=== PATIENT | female | born 1960 | race Caucasian/White ===

== ENCOUNTER 2017-08-27 09:19 | Observation (INO) | payer OTHER ==
[2017-08-27] MEDS ORDERED: KETOROLAC TROMETHAMINE 30 MG/1 ML VIAL IVPUSH ONE (09:37)
[2017-08-27] MEDS ORDERED: ONDANSETRON 4 MG/2 ML VIAL IVPB ONE ×3 (09:38→15:49)
[2017-08-27] MEDS ORDERED: SODIUM CHLORIDE 1,000 ML IV STA ×2 (09:39→12:24)
[2017-08-27] MEDS ORDERED: ONDANSETRON 4 MG/2 ML VIAL ONE ×4 (10:03→16:08)
[2017-08-27] MEDS ORDERED: KETOROLAC TROMETHAMINE 30 MG/1 ML VIAL ONE (10:03)
[2017-08-27] MEDS ORDERED: ACETAMINOPHEN INJECTION 100 ML IVPB ONE (10:07)
[2017-08-27] MEDS ORDERED: ACETAMINOPHEN 1000 MG/100 ML VIAL (NON FORMULARY) IVPB ONE (10:07)
[2017-08-27] MEDS ORDERED: LORazepam 2 MG/ML SDV VIAL ONE ×2 (10:08→16:09)
--- NOTE | 2017-08-27 10:08 | PDOC ---
History of Present Illness - General Chief Complaint: Pain, Acute Stated Complaint: POSSIBLE KIDNEY STONES Time Seen by Provider: 08/27/17 09:37 - History of Present Illness Initial Comments: 08/27/17 10:30 Chief complaint: Flank pain History of present illness: Patient states that she has had right flank pain, severe, but intermittent, for the last 2 days. It is worse today. Review of systems: Admits nausea, retching, dark urine, and dysuria. Denies fever/chills, URI symptoms, sore throat, cough, chest pain, shortness of breath , anterior abdominal pain, diarrhea, hematemesis, melena, bloody stool, vaginal bleeding or discharge, visual or focal neurologic symptoms. Remainder systems reviewed and found to be negative Past medical history: History of kidney stones, poor results from left knee replacement resulting in knee and back pain, numbness and tingling on the left foot. Multiple ALLERGIES to medications, including narcotics, but the ALLERGIC reaction described consistent more with side effect and ALLERGIC reaction. With morphine she experiences nausea and confusion, and with oxycodone nausea. Social history: No tobacco alcohol or nonprescription drugs. Ambulatory with a cane, cares for herself. Family history: Reviewed and noncontributory including early coronary artery disease, metabolic disease including diabetes, and cancer Physical exam: Alert, moderate distress due to colicky right flank pain. Afebrile, vital signs stable except for moderately elevated blood pressure, probably due to pain and anxiety. HEENT clear. No pallor or icterus Neck supple without bruit mass or nodes Chest clear to P&A CV regular without murmur rub or gallop pulses full and symmetric no JVD or edema no bruits Abdomen nondistended. Bowel sounds normal. Mild sensitivity to deep palpation left mid abdomen and left flank. However, this may be due to anticipation and not real tenderness. Neurological intact Extremities: Synovial thickening of the left knee joint, no point tenderness erythema or warmth. Decreased sensation and strength in the left foot, which the patient states is unchanged and due to her knee surgery. Impression: Patient's intractable pain is most likely due to to a recurrent kidney stone, with renal colic. Other possibilities include cholecystitis, appendicitis, obstruction with perforation, other intra-abdominal process Plan: Analgesia, labs and CT, further evaluation depending on results 08/27/17 10:48 Past History - Past Medical History Allergies/Adverse Reactions: Allergies Allergy/AdvReac Type Severity Reaction Status Date / Time atorvastatin AdvReac Severe Myalgia Verified 08/27/17 09:50 gabapentin AdvReac Severe Headache Verified 08/27/17 09:51 oxycodone AdvReac Severe Vomiting Verified 08/27/17 09:51 cyclobenzaprine HCl AdvReac Intermediate pALPITATION Verified 08/27/17 09:51 [From Flexeril] S morphine AdvReac Intermediate Anxiety, Verified 08/27/17 09:51 agitation simvastatin AdvReac Myalgia Verified 08/27/17 09:52 Home Medications: Ambulatory Orders Cholecalciferol (Vitamin D3) [Vitamin D3] 2,000 unit PO DAILY 03/20/16 Cyanocobalamin (Vitamin B-12) [Vitamin B12] 2,500 mcg PO DAILY 03/20/16 Anemia: No Asthma: No Cancer: No Cardiac Disorders: Yes (CARDIAC ABLATION FOLLOWING SVT 1999) CVA: No COPD: No CHF: No Dementia: No Diabetes: No GI Disorders: No Disorders: No HTN: No Hypercholesterolemia: Yes Kidney Stones: Yes Liver Disease: No Seizures: No Thyroid Disease: No - Surgical History Abdominal Surgery: No Appendectomy: No Cardiac Surgery: Yes (ABLATION FOR SVT 1999) Cholecystectomy: No Lung Surgery: No Neurologic Surgery: No Orthopedic Surgery: Yes (LEFT KNEE ARTHROSCOPY 2011/LEFT TKR 2012) - Immunization History Td Vaccination: Yes Immunization Up to Date: Yes - Suicide/Smoking/Psychosocial Hx Smoking Status: No Smoking History: Never smoked Have you smoked in the past 12 months: No Number of Cigarettes Smoked Daily: 0 Hx Alcohol Use: Yes (RARE) Drug/Substance Use Hx: No Substance Use Type: Alcohol Hx Substance Use Treatment: No ED Treatment Course - LABORATORY CBC & Chemistry Diagram: 08/27/17 10:05 08/27/17 10:05 Medical Decision Making - Medical Decision Making 08/27/17 10:38 Despite the administration of multiple medications to which the patient has not experienced ALLERGY, her pain is still severe and she is writhing in discomfort. Since her "ALLERGIC reactions "to narcotics do not appear to be due to true ALLERGIES but to medication side effects, a small dose of Dilaudid was administered, which the patient tolerated well. 08/27/17 12:25 CT reveals a 3 mm stone at the right UVJ, with hydronephrosis and hydroureter. The patient still experiencing colicky pain, but more controlled now with narcotics. Continue observation and fluids. Laboratory studies without significant abnormalities, specifically, no elevated white count and normal renal function. Urinalysis without evidence of UTI. 08/27/17 12:26 08/27/17 17:59 Spoke to hospitalist, Dr. Palomo, for admission. Consult her stated from Dr. Barclay who will see patient in consultation. Patient continues to have intermittent pain, nausea, and vomiting, despite continuous medication administration. *DC/Admit/Observation/Transfer Diagnosis at time of Disposition: Renal colic on right side - Discharge Dispostion Admit: Yes - Referrals - Patient Instructions - Post Discharge Activity
[2017-08-27 10:18] LABS: BASO % 0.5 % (0-2.0); EOS % 0.4 % (0-4.5); HEMATOCRIT 41.9 % (32.4-45.2); HEMOGLOBIN 14.1 GM/dl (10.7-15.3); LYMPH % 35.7 % (8-40); MCH 30.7 pg (25.7-33.7); MCHC 33.6 g/dl (32.0-36.0); MEAN CELL VOLUME 91.4 fl (80-96); MONO % 10.8 % (3.8-10.2); NEUT % 52.6 % (42.8-82.8); PLATELET COUNT 409 K/MM3 (134-434); RBC 4.59 M/mm3 (3.60-5.2); RDW 13.1 % (11.6-15.6)
[2017-08-27] MEDS ORDERED: HYDROmorphone HCL CARPU-JECT 1 MG/1 ML DISP.SYRIN IVPUSH ONE ×3 (10:19→13:07)
[2017-08-27] MEDS ORDERED: HYDROmorphone HCL CARPU-JECT 1 MG/1 ML DISP.SYRIN ONE ×3 (10:22→13:11)
[2017-08-27 10:31] LABS: PH,URINE 5.5 (4.5-8); URINE APPEARANCE Clear; URINE BILIRUBIN 1+ (NEGATIVE); URINE GLUCOSE (UA) Negative (NEGATIVE); URINE KETONE Negative (NEGATIVE); URINE LEUK ESTERASE Negative (NEGATIVE); URINE NITRITE Negative (NEGATIVE); URINE UROBILINOGEN 0.2 (0.2-1.0)
[2017-08-27 10:43] LABS: URINE BLOOD 1+ (NEGATIVE)
[2017-08-27 10:43] LABS: ALBUMIN 4.3 g/dl (3.5-5.0); ALK PHOS 67 U/L (32-92); ANION GAP 8 (8-16); BILIRUBIN,TOTAL 0.7 mg/dl (0.2-1.0); BLOOD UREA NITROGEN 12 mg/dl (7-18); CALCIUM 9.1 mg/dl (8.4-10.2); CHLORIDE 106 mmol/L (98-107); CO2 21 mmol/L (22-28); GLUCOSE,RANDOM 107 mg/dl (74-106); POTASSIUM 3.7 mmol/L (3.5-5.1); SGOT/AST 27 U/L (10-42); SGPT/ALT 16 U/L (10-40); SODIUM 135 mmol/L (136-145); TOT PROT 7.2 g/dl (6.4-8.3)
[2017-08-27 10:44] LABS: URINE COLOR YELLOW; URINE PROTEIN 1+ (NEGATIVE)
[2017-08-27 11:05] LABS: CREATININE < 0.8 mg/dl (0.6-1.3)
[2017-08-27 11:55] LABS: EPI CELLS FEW /HPF; URINE BACTERIA FEW /hpf (NEGATIVE); URINE RBC NONE SEEN /hpf (0-3); URINE WBC 0-2 (0-5)
[2017-08-27 11:56] LABS: YEAST FEW
[2017-08-27] MEDS ORDERED: ACETAMINOPHEN 1000 MG/100 ML VIAL (NON FORMULARY) IVPB PRN (15:15)
[2017-08-27] MEDS ORDERED: SODIUM CHLORIDE 1,000 ML IV SCH (15:15)
--- NOTE | 2017-08-27 15:23 | HOSP ---
Subjective - Review of Symptoms Events since last encounter: Was called By ED. Attending Dr. Babcock that patient needs to come in for observation for Renal colic with 3mm stone and was suggested to karly Segura's office for further evaluation. Physically, I am not available At [facility], placed basic orders. 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 Physical Examination Vital Signs: Vital Signs Temperature 98.5 F 08/27/17 09:21 Pulse Rate 56 L 08/27/17 13:15 Respiratory Rate 20 08/27/17 13:15 Blood Pressure 124/78 08/27/17 14:30 O2 Sat by Pulse Oximetry (%) 99 08/27/17 11:09 Labs: CBC, BMP 08/27/17 10:05 08/27/17 10:05
[2017-08-27 17:32] VITALS: BMI 26.4
[2017-08-27] MEDS ORDERED: TAMSULOSIN HCL 0.4 MG CAP.ER.24H (FP) PO ONE (23:00)
--- NOTE | 2017-08-27 23:04 | HP ---
CHIEF COMPLAINT: flank pain PCP: [facility] HISTORY OF PRESENT ILLNESS: This is a 57 year old female with a past medical history significant for renal colic presented with R flank pain x 2 days with nausea and vomiting. Upon exam pt reports no further flank pain. C/o headache, concerned for impending migraine. Ice pack helping. given ofirmev IV. ER course was notable for: (1) CT with 3mm stone R UVJ, mild R hydrouteronephrosis (2) WBC 6.0 (3) u/a no RBC/no WBC Recent Travel: pt denies PAST MEDICAL HISTORY: renal stone, SVT HLD, chronic L knee and back pain, fibroids PAST SURGICAL HISTORY: hysterectomy 2006 L knee arthroscopy 2011, L TKR 2013 Ablation for SVT 2000 BCC removal 2017 Social History: Smoking: pt denies Alcohol: occ glass of wine Drugs: pt denies Family History: mother alive with Dementia, HTN, gallstones, kidney stones, OA father age 55, heart disease brother alive, s/p valve replacement and cardiac disease sister alive, fibroids Allergies atorvastatin Adverse Reaction (Severe, Verified 08/27/17 09:50) Myalgia gabapentin Adverse Reaction (Severe, Verified 08/27/17 09:51) Headache oxycodone Adverse Reaction (Severe, Verified 08/27/17 09:51) Vomiting cyclobenzaprine HCl [From Flexeril] Adverse Reaction (Intermediate, Verified 09:51) pALPITATIONS morphine Adverse Reaction (Intermediate, Verified 08/27/17 09:51) Anxiety, agitation simvastatin Adverse Reaction (Verified 08/27/17 09:52) Myalgia HOME MEDICATIONS: 3 Medication Instructions Recorded Cholecalciferol (Vitamin D3) 2,000 unit PO DAILY 03/20/16 [Vitamin D3] Cyanocobalamin (Vitamin B-12) 2,500 mcg PO DAILY 03/20/16 [Vitamin B12] REVIEW OF SYSTEMS CONSTITUTIONAL: Absent: fever, chills, diaphoresis, generalized weakness, malaise, loss of appetite, weight change HEENT: Absent: rhinorrhea, nasal congestion, throat pain, throat swelling, difficulty swallowing, mouth swelling, ear pain, eye pain, visual changes CARDIOVASCULAR: Absent: chest pain, syncope, palpitations, irregular heart rate, lightheadedness , peripheral edema RESPIRATORY: Absent: cough, shortness of breath, dyspnea with exertion, orthopnea, wheezing, stridor, hemoptysis GASTROINTESTINAL: Present: nausea, vomiting Absent: abdominal pain, abdominal distension, diarrhea, constipation, melena, hematochezia GENITOURINARY: Present: flank pain Absent: dysuria, frequency, urgency, hesitancy, hematuria, genital pain MUSCULOSKELETAL: Absent: myalgia, arthralgia, joint swelling, back pain, neck pain SKIN: Absent: rash, itching, pallor HEMATOLOGIC/IMMUNOLOGIC: Absent: easy bleeding, easy bruising, lymphadenopathy, frequent infections ENDOCRINE: Absent: unexplained weight gain, unexplained weight loss, heat intolerance, cold intolerance NEUROLOGIC: Absent: headache, focal weakness or paresthesias, dizziness, unsteady gait, seizure, mental status changes, bladder or bowel incontinence PSYCHIATRIC: Absent: anxiety, depression, suicidal or homicidal ideation, hallucinations. PHYSICAL EXAMINATION Vital Signs - 24 hr 3 08/27/17 08/27/17 08/27/17 09:21 10:23 10:28 Temperature 98.5 F Pulse Rate 94 H Pulse Rate [ 92 H 80 Right] Respiratory 20 24 20 Rate Blood Pressure 157/92 Blood Pressure 178/119 160/97 [Right Arm] O2 Sat by Pulse 100 98 100 Oximetry (%) 3 08/27/17 08/27/17 08/27/17 10:40 11:09 13:15 Temperature Pulse Rate Pulse Rate [ 75 62 56 L Right] Respiratory 20 20 20 Rate Blood Pressure Blood Pressure 145/92 136/83 141/83 [Right Arm] O2 Sat by Pulse 99 Oximetry (%) 08/27/17 08/27/17 08/27/17 08/27/17 16:10 17:22 20:00 22:04 Temperature 97.5 F L 93.7 F L 98.1 F 98.6 F Pulse Rate 69 76 79 Pulse Rate [ 72 Right] Respiratory 16 18 16 18 Rate Blood Pressure 138/90 125/68 112/66 Blood Pressure 143/81 [Right Arm] O2 Sat by Pulse 97 100 Oximetry (%) GENERAL: Awake, alert, and fully oriented, in no acute distress. HEAD: Normal with no signs of trauma. EYES: Pupils equal, round and reactive to light, extraocular movements intact, sclera anicteric, conjunctiva clear. No lid lag. EARS, NOSE, THROAT: Ears normal, nares patent, oropharynx clear without exudates. Moist mucous membranes. NECK: Normal range of motion, supple without lymphadenopathy, JVD, or masses. LUNGS: Breath sounds equal, clear to auscultation bilaterally. No wheezes, and no crackles. No accessory muscle use. HEART: Regular rate and rhythm, normal S1 and S2 without murmur, rub or gallop. ABDOMEN: Soft, nontender, not distended, normoactive bowel sounds, no guarding, no rebound, no masses. No hepatomegaly or splenomegaly. MUSCULOSKELETAL: Normal range of motion at all joints. No bony deformities or tenderness. +R CVA tenderness. UPPER EXTREMITIES: 2+ pulses, warm, well-perfused. No cyanosis. No clubbing. No peripheral edema. LOWER EXTREMITIES: 2+ pulses, warm, well-perfused. No calf tenderness. No peripheral edema. NEUROLOGICAL: Cranial nerves II-XII intact. Normal speech. Normal gait. PSYCHIATRIC: Cooperative. Good eye contact. Appropriate mood and affect. SKIN: Warm, dry, normal turgor, no rashes or lesions noted, normal capillary refill. Laboratory Results - last 24 hr 3 08/27/17 08/27/17 08/27/17 09:41 10:05 10:05 WBC 6.0 D RBC 4.59 Hgb 14.1 Hct 41.9 MCV 91.4 MCH 30.7 MCHC 33.6 RDW 13.1 Plt Count 409 MPV 7.0 L Neutrophils % 52.6 Lymphocytes % 35.7 Monocytes % 10.8 H Eosinophils % 0.4 Basophils % 0.5 Sodium 135 L Potassium 3.7 Chloride 106 Carbon Dioxide 21 L Anion Gap 8 BUN 12 Creatinine < 0.8 D Creat Clearance w eGFR > 60 Random Glucose 107 H Calcium 9.1 Total Bilirubin 0.7 D AST 27 D ALT 16 D Alkaline Phosphatase 67 Total Protein 7.2 Albumin 4.3 Urine Color Yellow Urine Appearance Clear Urine pH 5.5 Ur Specific [place] >= 1.030 H Urine Protein 1+ H Urine Glucose (UA) Negative Urine Ketones Negative Urine Blood 1+ H Urine Nitrite Negative Urine Bilirubin 1+ H Urine Urobilinogen 0.2 Ur Leukocyte Esterase Negative Urine RBC None seen Urine WBC 0-2 Ur Epithelial Cells Few Urine Bacteria Few Urine Yeast Few Radiology Reports CT abd/pel without contrast IMPRESSION: A 3 mm right ureterovesical junction calculus with mild right hydroureteronephrosis. Reported By: Holly Mak 08/27/17 1205 ASSESSMENT/PLAN: 57yF with PMH renal stones, HLD, SVT, migraines, OA presented to the ED with R flank pain, nausea, vomiting. R kidney stone - 3mm stone RUVJ - tamsulosin x 1 then daily - multiple intolerances to opioids, cont ofirmev, if pain not resolved, give toradol - urology consult HLD - cont home lipitor OA - takes vicodin at home, unavailable here, tx with tylenol migraines - home sumatriptan continued DVT PPX - deferred, anticipated lOS <48h FEN - NS @ 125ml/hr - bmp in am - NPO after MN Dispo: Pt currently requires further observation for management of her emergent condition. Visit type - Emergency Visit Emergency Visit: Yes ED Registration Date: 08/27/17 Care time: The patient presented to the Emergency Department on the above date and was hospitalized for further evaluation of their emergent condition. - New Patient This patient is new to me today: Yes Date on this admission: 08/27/17 - Critical Care Critical Care patient: No Hospitalist Screening - Colonoscopy Questionnaire Colonoscopy Questionnaire: Colonoscopy Questionnaire - Patient: 50 - 75 years old and never had a screening colonoscopy: No History of colon or rectal polyps, or CA: No History of IBD, Crohn's disease or UC: No History of abdominal radiation therapy as a child: No - Relative: 1 with colon or rectal CA, or polyps at age 60 or younger: No Colon or rectal CA diagnosed at age 45 or younger: No Multiple relatives with colon or rectal CA: No - Outcome: Screening Result: Negative Screen
[2017-08-27] MEDS ORDERED: ONDANSETRON 4 MG/2 ML VIAL IVPUSH PRN (23:27)
[2017-08-27] MEDS ORDERED: SUMAtriptan SUCCINATE 50 MG TABLET PO PRN (23:58)
[2017-08-28] MEDS ORDERED: TAMSULOSIN HCL 0.4 MG CAP.ER.24H (FP) PO SCH (08:30)
[2017-08-28 09:42] VITALS: BP 118/61; PULSE 76; TEMP 98.4
[2017-08-28] MEDS ORDERED: CHOLECALCIFEROL (VITAMIN D3) 1,000 UNIT TABLET (FP) PO SCH (10:00)
[2017-08-28] MEDS ORDERED: CYANOCOBALAMIN 1,000 MCG TABLET (FP) PO SCH (10:00)
--- NOTE | 2017-08-28 10:25 | DS ---
Physical Exam: SUBJECTIVE: Patient seen and examined, patient is ambulatory at bedside, denies any flank pain, patient is requesting discharge home. OBJECTIVE: This is a 57 year old female with a past medical history significant for renal colic presented with R flank pain x 2 days with nausea and vomiting. Upon exam pt reports no further flank pain. C/o headache, concerned for impending migraine. Ice pack helping. given ofirmev IV. ER course was notable for: (1) CT with 3mm stone R UVJ, mild R hydrouteronephrosis (2) WBC 6.0 (3) u/a no RBC/no WBC Vital Signs Period Temp Pulse Resp BP Sys/Mckeon Pulse Ox Last 24 Hr 93.7 F-98.6 F 56-84 16-20 112-160/61-97 97-100 PHYSICAL EXAM GENERAL: The patient is awake, alert, and fully oriented, in no acute distress. HEAD: Normal with no signs of trauma. EYES: PERRL, extraocular movements intact, sclera anicteric, conjunctiva clear. ENT: Ears normal, nares patent, oropharynx clear without exudates, moist mucous membranes. NECK: Trachea midline, full range of motion, supple. LUNGS: Breath sounds equal, clear to auscultation bilaterally, no wheezes, no crackles, no accessory muscle use. HEART: Regular rate and rhythm, S1, S2 without murmur, rub or gallop. ABDOMEN: negative cva tenderness bilaterally, Soft, nontender, nondistended, normoactive bowel sounds, no guarding, no rebound, no hepatosplenomegaly, no masses. EXTREMITIES: 2+ pulses, warm, well-perfused, no edema. NEUROLOGICAL: Cranial nerves II through XII grossly intact. Normal speech, gait not observed. PSYCH: Normal mood, normal affect. SKIN: Warm, dry, normal turgor, no rashes or lesions noted. LABS Laboratory Results - last 24 hr 08/27/17 08/27/17 08/27/17 09:41 10:05 10:05 WBC 6.0 D RBC 4.59 Hgb 14.1 Hct 41.9 MCV 91.4 MCH 30.7 MCHC 33.6 RDW 13.1 Plt Count 409 MPV 7.0 L Neutrophils % 52.6 Lymphocytes % 35.7 Monocytes % 10.8 H Eosinophils % 0.4 Basophils % 0.5 Sodium 135 L Potassium 3.7 Chloride 106 Carbon Dioxide 21 L Anion Gap 8 BUN 12 Creatinine < 0.8 D Creat Clearance w eGFR > 60 Random Glucose 107 H Calcium 9.1 Total Bilirubin 0.7 D AST 27 D ALT 16 D Alkaline Phosphatase 67 Total Protein 7.2 Albumin 4.3 Urine Color Yellow Urine Appearance Clear Urine pH 5.5 Ur Specific [place] >= 1.030 H Urine Protein 1+ H Urine Glucose (UA) Negative Urine Ketones Negative Urine Blood 1+ H Urine Nitrite Negative Urine Bilirubin 1+ H Urine Urobilinogen 0.2 Ur Leukocyte Esterase Negative Urine RBC None seen Urine WBC 0-2 Ur Epithelial Cells Few Urine Bacteria Few Urine Yeast Few Radiology Reports CT abd/pel without contrast IMPRESSION: A 3 mm right ureterovesical junction calculus with mild right hydroureteronephrosis. Reported By: Holly Mak DO 08/27/17 1205 HOSPITAL COURSE: patient is a 7yF with PMH renal stones, HLD, SVT, migraines, OA presented to the ED with R flank pain, nausea, vomiting. Patient was admitted from the emergency department to observation for R kidney stone, 3mm stone RUVJ, patient was started on flomax. No leukocytosis noted, patient is pain free. Patient has a past medical history of hyperlipidemia, lipitor was continued throughout admission. PLAN - discharge home with flomax - strict follow up with urology Date of Admission:08/27/17 Date of Discharge: 08/28/17 Minutes to complete discharge: 45 Discharge Summary Reason For Visit: POSSIBLE KIDNEY STONES Current Active Problems Renal colic on right side (Acute) Condition: Improved - Instructions Diet, Activity, Other Instructions: rest, continue to strain all urine continue flomax in the AM continue all medications as prescribed please follow up with the urologist within 1 week if any new or persistent symptoms develop please return to the emergency department Referrals: Jose Barclay MD., [Staff Physician] - Theron Joseph MD [Staff Physician] - Adolfo Abdi MD [Staff Physician] - Disposition: HOME - Home Medications Comprehensive Discharge Medication List: Ambulatory Orders Atorvastatin Ca 10 mg PO HS 08/27/17 [id number] 50-325-40 1 tab PO As directed PRN 08/27/17 Hydrocodone-Acetamin 10-325 mg 1 tab PO PRN 08/27/17 Sumatriptan 100 mg PO PRN 08/27/17 Vit B12 1,000 iu PO DAILY 08/27/17 This patient is new to me today: Yes Date on this admission: 08/28/17 Emergency Visit: Yes ED Registration Date: 08/27/17 Care time: The patient presented to the Emergency Department on the above date and was hospitalized for further evaluation of their emergent condition. Critical Care patient: No - Discharge Referral Referred to [facility] Yes Physician Referral: Adolfo Abdi MD (Int Med)
[2017-08-28] MEDS ORDERED: ATORVASTATIN CA 10 MG TABLET (FP) PO SCH (22:00)
== END 2017-08-28 11:00 | disposition home or self-care (01) ==
LOC: FER 09:19 → FM/S 15:55
PROVIDERS: ADMIT Internal Medicine; ATTEND Nurse Practitioner Family
PROC: 3E033NZ Introduction of Analgesics, Hypnotics, Sedatives into Peripheral Vein, Percutaneous Approach (ICD-10-PCS; principal; 2017-08-27)
PROC: 3E0333Z Introduction of Anti-inflammatory into Peripheral Vein, Percutaneous Approach (ICD-10-PCS; 2017-08-27)
PROC: 3E033GC Introduction of Other Therapeutic Substance into Peripheral Vein, Percutaneous Approach (ICD-10-PCS; 2017-08-27)
PROC: 3E0337Z Introduction of Electrolytic and Water Balance Substance into Peripheral Vein, Percutaneous Approach (ICD-10-PCS; 2017-08-27)
DX: N13.2 Hydronephrosis with renal and ureteral calculous obstruction (principal); E78.5 Hyperlipidemia, unspecified; G43.909 Migraine, unspecified, not intractable, without status migrainosus; Z87.442 Personal history of urinary calculi; Z88.8 Allergy status to other drugs, medicaments and biological substances
CPT/HCPCS: 36415; 74176; 80053; 81003; 81015; 85025; 87086; 99285-25; G0378; J0131; J7030

== ENCOUNTER 2017-09-24 06:04 | Day surgery (SDC) | payer OTHER ==
[2017-09-18 09:01] VITALS: BMI 25.9
[2017-09-24] MEDS ORDERED: PROPOFOL 20 ML ONE ×3 (07:26)
[2017-09-24] MEDS ORDERED: SUCCINYLCHOLINE CHLORIDE 200 MG/10 ML VIAL ONE (07:27)
[2017-09-24] MEDS ORDERED: MIDAZOLAM HCL 2 MG/2 ML SINGLE DOSE VIAL ONE (07:27)
[2017-09-24] MEDS ORDERED: LIDOCAINE HCL 2% (50ML VIAL) INF ONE (07:55)
[2017-09-24] MEDS ORDERED: ONDANSETRON 4 MG/2 ML VIAL IVPUSH PRN (08:16)
[2017-09-24] MEDS ORDERED: PROMETHAZINE HCL 25 MG/1 ML VIAL IVPUSH PRN (08:16)
[2017-09-24 08:48] VITALS: TEMP 98.1
[2017-09-24 09:26] VITALS: BP 128/82; PULSE 62
--- NOTE | 2017-09-24 10:10 | OP ---
DATE OF OPERATION: 09/24/2017 PREOPERATIVE DIAGNOSIS: Right long trigger finger. POSTOPERATIVE DIAGNOSIS: Right long trigger finger. OPERATIVE PROCEDURE: Right long trigger finger release. ANESTHESIA: Local with sedation. COMPLICATIONS: None. ESTIMATED BLOOD LOSS: Minimal. INDICATIONS FOR PROCEDURE: The patient is a 57-year-old female with the above findings indicated for operative treatment. Risks, benefits and alternatives were discussed with the patient at length. Proper informed consent was obtained. PROCEDURE: After proper identification of the patient and correct operative site, the patient was brought to the operating room and placed supine on the operating room table. All prominences were well padded. Sedation was given by the anesthesiologist. Local anesthesia was given with 2% lidocaine. The right upper extremity was prepped and draped in the usual sterile fashion. A well-padded tourniquet was placed with a sterile prep. Esmarch bandage used to exsanguinate the right upper extremity. Tourniquet was inflated to 250 mmHg. A longitudinal incision was made over the A1 lucho of the long finger. Incision was taken sharply through skin with blunt and sharp dissection through subcutaneous tissues. The A1 lucho was divided longitudinally. At this point, the patient was asked to flex and extend the finger and no further triggering was noted. The wound was irrigated with saline and repaired with a 5-0 nylon suture. Sterile dressings were applied. The patient was reversed from anesthesia and brought to the recovery room in stable condition. She tolerated the procedure well. JOSIAH EUGENE M.D. [id number]
== END 2017-09-24 09:28 | disposition home or self-care (01) ==
LOC: FASU 06:04
PROVIDERS: ATTEND Orthopaedic Surgery Hand Surgery
PROC: 0LN70ZZ Release Right Hand Tendon, Open Approach (ICD-10-PCS; principal; 2017-09-24 07:43)
DX: M65.331 Trigger finger, right middle finger (principal)

== ENCOUNTER 2018-07-01 08:34 | Day surgery (SDC) | payer OTHER ==
[2018-06-19 09:15] VITALS: BMI 25.7
[2018-07-01] MEDS ORDERED: MIDAZOLAM HCL 2 MG/2 ML SINGLE DOSE VIAL ONE (09:34)
[2018-07-01] MEDS ORDERED: PROPOFOL 20 ML ONE ×2 (09:37)
[2018-07-01] MEDS ORDERED: LIDOCAINE HCL 2% (50ML VIAL) INF ONE (09:47)
[2018-07-01] MEDS ORDERED: ONDANSETRON 4 MG/2 ML VIAL IVPUSH PRN (10:08)
[2018-07-01] MEDS ORDERED: PROMETHAZINE HCL 25 MG/1 ML VIAL IVPB PRN (10:08)
[2018-07-01] MEDS ORDERED: ACETAMINOPHEN 325 MG TABLET (FP) PO PRN (10:08)
[2018-07-01 10:30] VITALS: TEMP 97.7
[2018-07-01 10:49] VITALS: BP 118/77; PULSE 66
--- NOTE | 2018-07-01 12:20 | OP ---
DATE OF OPERATION: 07/01/2018 PREOPERATIVE DIAGNOSIS: Left carpal tunnel syndrome. POSTOPERATIVE DIAGNOSIS: Left carpal tunnel syndrome. OPERATIVE PROCEDURE: Left carpal tunnel release. ANESTHESIA: Local with sedation. COMPLICATIONS: None. ESTIMATED BLOOD LOSS: Minimal. INDICATION FOR PROCEDURE: The patient is a 58-year-old female with the above finding indicated for operative treatment. Risks, benefits, and alternatives were discussed with the patient at length and proper informed consent was obtained. DESCRIPTION OF PROCEDURE: After preoperative identification of patient and correct operative site, patient was brought to the operating room and placed supine on the operating table with all prominences well padded. Sedation and local anesthesia were given. Left upper extremity was prepped and draped in the usual sterile fashion. A well-padded tourniquet was placed over the sterile prep. Esmarch bandage used to exsanguinate left upper extremity. Tourniquet was placed up at 250 mmHg. Longitudinal incision was made over the carpal canal. Incision was taken sharply through skin with blunt and sharp dissection through subcutaneous tissues. Palmar fascia was divided longitudinally. Transverse carpal ligament was divided longitudinally, along with the distal 4 cm of the antebrachial fascia under direct visualization with loop magnification. This provided complete release of the median nerve at the wrist. Wound was irrigated with saline and repaired with a 5-0 nylon suture. Sterile dressings were applied. Patient was brought to the recovery room in stable condition. She tolerated the procedure well. JOSIAH EUGENE M.D. [id number]
== END 2018-07-01 10:53 | disposition home or self-care (01) ==
LOC: FASU 08:34
PROVIDERS: ATTEND Orthopaedic Surgery Hand Surgery
PROC: 01N50ZZ Release Median Nerve, Open Approach (ICD-10-PCS; principal; 2018-07-01 09:54)
DX: G56.02 Carpal tunnel syndrome, left upper limb (principal)

== ENCOUNTER 2018-11-18 06:52 | Day surgery (SDC) | payer OTHER | END 2018-11-18 12:00 | disposition home or self-care (01) | LOC: FASU 06:52 ==

== ENCOUNTER 2019-06-15 09:06 | Emergency (ER) | payer OTHER ==
[2019-06-15 09:20] VITALS: BP 140/93; PULSE 74; TEMP 98.3; BMI 26.6
--- NOTE | 2019-06-15 09:29 | PDOC ---
History of Present Illness - General Chief Complaint: Back Pain Stated Complaint: KIDNEY STONE Time Seen by Provider: 06/15/19 09:28 - History of Present Illness Initial Comments: 06/15/19 11:06 Chief complaint: Back pain HPI: Patient complains of mid back pain, bilateral, but worse on the right. Mild pain for about 1 week, but worse last night. Unable to get comfortable. Review of systems: No fever/chills, headache, sore throat, URI symptoms, cough, chest pain, shortness of breath, vomiting, diarrhea, vaginal bleeding or discharge. She admits to frequency of urination, decreased urine production, and that the pain is positional, and relieved by a hot shower or heating pad. Past medical history: Chronic back pain, migraine, elevated cholesterol, kidney stones several years ago, uncomplicated, ablation for presumed SVT several years ago, with no recurrent symptoms. Social history: No tobacco alcohol or nonprescription drugs. Employed, fully active and without significant disability Family history reviewed and noncontributory including coronary artery disease, pulmonary/GI disease, and cancer. Physical exam: Alert and oriented well-developed well-nourished mild to moderate distress due to back pain. Afebrile, vital signs normal No pallor or icterus. PERRLA, fundi benign, ENT clear Neck supple without bruit mass or nodes Chest clear with full breath sounds bilaterally CV regular without murmur rub or gallop pulses full and symmetric no JVD or edema no bruits Abdomen nondistended, bowel sounds normal, no masses. There is significant point tenderness in the right lower quadrant to deep palpation with a suggestion of guarding but no rebound. There is no CVAT. Extremities no CCE Skin clear, no rash, adequate turgor and wet mucous membranes Neurological intact Impression: Possible recurrent renal colic, but the examination with significant right lower quadrant tenderness to palpation suggests GI or pelvic etiology. Rule out appendicitis, rule out diverticulitis, rule out ovarian disease. Plan: Intravenous fluids, laboratory evaluation, CT and further medical management depending on results. 06/15/19 12:37 Past History - Past Medical History Allergies/Adverse Reactions: Allergies Allergy/AdvReac Type Severity Reaction Status Date / Time oxycodone AdvReac Severe Vomiting Verified 06/15/19 09:35 cyclobenzaprine HCl AdvReac Intermediate pALPITATION Verified 06/15/19 09:35 [From Flexeril] S morphine AdvReac Intermediate Anxiety, Verified 06/15/19 09:35 agitation Home Medications: Ambulatory Orders Atorvastatin Ca [Lipitor] 10 mg PO HS 09/24/17 Butalb/Acetaminophen/Caffeine [Fioricet Tablet 50-325-40] 1 each PO ASDIR PRN Cholecalciferol (Vitamin D3) [Vitamin D3] 2,000 unit PO DAILY 09/24/17 Cyanocobalamin [Vitamin B12 -] 1,000 mcg PO DAILY 09/24/17 Hydrocodone/Acetaminophen [Hydrocodone-Acetamin 10-325 mg] 1 each PO Q6H PRN 05/03 Sumatriptan Succinate 100 mg PO ASDIR PRN 09/24/17 Meloxicam 15 mg PO DAILY 11/18/18 Amox-Tr/K Cl [Augmentin 875-125mg Tablet -] 1 tab PO BID #20 tablet 06/15/19 Anemia: No Asthma: No Cancer: No Cardiac Disorders: Yes (CARDIAC ABLATION FOLLOWING SVT 1999) CVA: No COPD: No CHF: No Dementia: No Diabetes: No GI Disorders: No Disorders: No HTN: No Hypercholesterolemia: Yes Kidney Stones: Yes Liver Disease: No Seizures: No Thyroid Disease: No Other medical history: R LEG FX, L RIB FX - Surgical History Abdominal Surgery: No Appendectomy: No Cardiac Surgery: Yes (ABLATION FOR SVT 1999) Cholecystectomy: No GI Surgery: Yes (COLONOSCOPY) Lung Surgery: No Neurologic Surgery: No Orthopedic Surgery: Yes (LEFT KNEE ARTHROSCOPY 2011/LEFT TKR 2012, carpal tunnel r hand) - Immunization History Td Vaccination: Yes Immunization Up to Date: Yes - Psycho Social/Smoking Cessation Hx Smoking Status: No Smoking History: Never smoked Have you smoked in the past 12 months: No Number of Cigarettes Smoked Daily: 0 Hx Alcohol Use: Yes (SOCIAL) Drug/Substance Use Hx: No Substance Use Type: Alcohol Hx Substance Use Treatment: No *Physical Exam - Vital Signs Last Vital Signs Temp Pulse Resp BP Pulse Ox 98.3 F 74 16 140/93 100 06/15/19 09:08 06/15/19 09:08 06/15/19 09:08 06/15/19 09:08 06/15/19 09:08 ED Treatment Course - LABORATORY CBC & Chemistry Diagram: 06/15/19 10:00 06/15/19 10:00 Medical Decision Making - Medical Decision Making 06/15/19 12:26 Urinalysis is clear. No blood. Negative nitrites and leukocyte esterase. This makes renal colic/UTI unlikely CBC and chemistries without significant abnormality. White blood count is 10.[address] shows evidence of mild diverticulitis, without perforation or abscess formation. This is the likely etiology of her pain. However, chronic back pain may also be contributing to discomfort Since there is no fever, elevated white count, or evidence of perforation, outpatient management with antibiotics, analgesics, and bowel rest was elected by the patient, as opposed to hospital admission for inpatient treatment. However, she was cautioned that serious complications could ensue if her symptoms persisted or worsened. She was instructed to return immediately to the emergency room if there was fever or chills, increased abdominal pain, vomiting or diarrhea, body aches, fatigue, malaise. Otherwise follow-up with primary physician Dr. Allred in 2 to 3 days. Clear liquids were recommended and she was discharged with pain controlled and in no acute distress. Discharge - Discharge Information Problems reviewed: Yes Clinical Impression/Diagnosis: Diverticulitis Condition: Stable Disposition: HOME - Admission No - Additional Discharge Information Prescriptions: Amox-Tr/K Cl [Augmentin 875-125mg Tablet -] 1 tab PO BID #20 tablet - Follow up/Referral Referrals: Raj Crystal MD [Primary Care Provider] - 3 days - Patient Discharge Instructions Patient Printed Discharge Instructions: DI for Diverticulitis Additional Instructions: There is evidence of diverticulitis on CT scan. You do not have fever, elevated white blood count, or sign of perforation or abscess, therefore it is possible to treat you safely as an outpatient with antibiotics, bowel rest, and pain medication. You should stay primarily on a clear liquid diet until symptoms improve. Use your hydrocodone for pain as needed. Return to emergency room if your condition worsens, especially if there is fever /chills, increased abdominal pain, nausea, vomiting, diarrhea, body aches, fatigue, malaise. Otherwise follow-up with Dr. Allred in 2 to 3 days. - Post Discharge Activity Work/Back to School Note: Back to Work
[2019-06-15] MEDS ORDERED: ONDANSETRON 4 MG/2 ML VIAL IVPB ONE (09:40)
[2019-06-15] MEDS ORDERED: SODIUM CHLORIDE 1,000 ML IV STA ×2 (09:40→12:24)
[2019-06-15] MEDS ORDERED: ONDANSETRON 4 MG/2 ML VIAL ONE (09:45)
[2019-06-15 10:29] LABS: BASO % 0.4 % (0-2.0); EOS % 0.2 % (0-4.5); HEMATOCRIT 41.4 % (32.4-45.2); HEMOGLOBIN 13.5 GM/dl (10.7-15.3); LYMPH % 16.2 % (8-40); MCH 30.5 pg (25.7-33.7); MCHC 32.7 g/dl (32.0-36.0); MEAN CELL VOLUME 93.2 fl (80-96); MEAN PLT VOLUME 6.9 fl (7.5-11.1); MONO % 5.8 % (3.8-10.2); NEUT % 77.4 % (42.8-82.8); PLATELET COUNT 339 K/MM3 (134-434); RBC 4.44 M/mm3 (3.60-5.2); RDW 12.5 % (11.6-15.6); WHITE BLOOD COUNT 10.6 K/mm3 (4.0-10.8)
[2019-06-15 10:33] LABS: ALBUMIN 4.3 g/dl (3.4-5.0); BILIRUBIN,TOTAL 1.1 mg/dl (0.2-1); CALCIUM 9.4 mg/dl (8.5-10); CREATININE 0.6 mg/dl (0.55-1.3); POTASSIUM 4.3 mmol/L (3.5-5.1); TOT PROT 7.8 g/dl (6.4-8.2)
[2019-06-15] MEDS ORDERED: AMPICILLIN NA/SULBACTAM NA 1.5 GM in SODIUM CHLORIDE 100 ML IVPB ONE (12:17)
[2019-06-15] MEDS ORDERED: KETOROLAC TROMETHAMINE 30 MG/1 ML VIAL IVPUSH ONE (12:17)
[2019-06-15] MEDS ORDERED: KETOROLAC TROMETHAMINE 30 MG/1 ML VIAL ONE (12:21)
[2019-06-15] MEDS ORDERED: AMPICILLIN NA/SULBACTAM NA 1.5 GM VIAL ONE (12:21)
== END 2019-06-15 13:28 | disposition home or self-care (01) ==
LOC: FER 09:06
PROC: 3E03329 Introduction of Other Anti-infective into Peripheral Vein, Percutaneous Approach (ICD-10-PCS; principal; 2019-06-15)
PROC: 3E0333Z Introduction of Anti-inflammatory into Peripheral Vein, Percutaneous Approach (ICD-10-PCS; 2019-06-15)
PROC: 3E033GC Introduction of Other Therapeutic Substance into Peripheral Vein, Percutaneous Approach (ICD-10-PCS; 2019-06-15)
PROC: 3E0337Z Introduction of Electrolytic and Water Balance Substance into Peripheral Vein, Percutaneous Approach (ICD-10-PCS; 2019-06-15)
DX: K57.92 Diverticulitis of intestine, part unspecified, without perforation or abscess without bleeding (principal); Z88.6 Allergy status to analgesic agent; Z88.8 Allergy status to other drugs, medicaments and biological substances; E78.00 Pure hypercholesterolemia, unspecified
CPT/HCPCS: 36415; 74176-TC; 80053; 81003; 85025; 99282-25; J7030

== ENCOUNTER 2020-05-18 21:06 | Emergency (ER) | payer OTHER ==
[2020-05-18 21:17] VITALS: BP 131/86; PULSE 88; TEMP 98.2; BMI 25.3
[2020-05-18] MEDS ORDERED: predniSONE 20 MG TABLET (UD) PO ONE (21:17)
[2020-05-18] MEDS ORDERED: IBUPROFEN 400 MG TABLET (FP) PO ONE ×2 (21:18→21:21)
[2020-05-18] MEDS ORDERED: predniSONE 20 MG TABLET (UD) ONE (21:21)
== END 2020-05-18 22:15 | disposition home or self-care (01) ==
LOC: FER 21:06
DX: S62.91XA Unspecified fracture of right hand, initial encounter for closed fracture (principal)
CPT/HCPCS: 73110-TC-RT-FY; 99283-25

== ENCOUNTER 2020-07-12 07:13 | Day surgery (SDC) | payer OTHER ==
[2020-07-10 10:46] VITALS: BMI 25.2
[~2020-07-12 07:13] MED LIST: LIDOCAINE HCL 2% (50ML VIAL) INF ONE
[2020-07-12] MEDS ORDERED: MIDAZOLAM HCL 2 MG/2 ML SINGLE DOSE VIAL ONE (08:18)
[2020-07-12] MEDS ORDERED: PROPOFOL 20 ML ONE (08:18)
[2020-07-12] MEDS ORDERED: DEXAMETHASONE SOD PHOSPHATE 4 MG/1 ML VIAL ONE (09:16)
[2020-07-12] MEDS ORDERED: ONDANSETRON 4 MG/2 ML VIAL ONE (09:16)
[2020-07-12 10:37] VITALS: TEMP 98
[2020-07-12 10:43] VITALS: BP 120/72; PULSE 74
== END 2020-07-12 10:44 | disposition home or self-care (01) ==
LOC: FASU 07:13
PROVIDERS: ATTEND Orthopaedic Surgery Hand Surgery
PROC: 0LN50ZZ Release Right Lower Arm and Wrist Tendon, Open Approach (ICD-10-PCS; principal; 2020-07-12 09:26)
DX: M65.4 Radial styloid tenosynovitis [de Quervain] (principal)

== ENCOUNTER 2020-08-15 11:04 | Emergency (ER) | payer SELFPAY | END 2020-08-15 12:22 | disposition home or self-care (01) | LOC: JVIRT 11:04 | DX: Z20.822 Contact with and (suspected) exposure to COVID-19 (principal) | CPT/HCPCS: C9803; G2251-GT; U0003 ==

== ENCOUNTER 2020-11-01 19:46 | Emergency (ER) | payer OTHER ==
[2020-11-01 19:55] VITALS: BP 129/81; PULSE 81; TEMP 98.9; BMI 25.4
[2020-11-01] MEDS ORDERED: DOXYCYCLINE HYCLATE 100 MG CAPSULE PO ONE ×2 (20:15→20:39)
== END 2020-11-01 20:55 | disposition home or self-care (01) ==
LOC: FER 19:46
DX: S40.861A Insect bite (nonvenomous) of right upper arm, initial encounter (principal); K52.9 Noninfective gastroenteritis and colitis, unspecified
CPT/HCPCS: 99283-25

== ENCOUNTER 2020-12-15 10:10 | Emergency (ER) | payer OTHER ==
[2020-12-15 10:25] VITALS: BP 137/76; PULSE 86; TEMP 98.6; BMI 24.6
== END 2020-12-15 13:25 | disposition home or self-care (01) ==
LOC: FER 10:10
DX: M25.551 Pain in right hip (principal); M79.641 Pain in right hand; W50.0XXA Accidental hit or strike by another person, initial encounter; W19.XXXA Unspecified fall, initial encounter
CPT/HCPCS: 70450-TC; 73130-TC-RT-FY; 73502-TC-RT-FY; 73552-TC-RT-FY; 81003; 87086; 99284-25

== ENCOUNTER 2021-02-23 10:24 | Emergency (ER) | payer OTHER ==
[2021-02-23 10:29] VITALS: BP 134/98; PULSE 77; TEMP 98.7; BMI 24.7
[2021-02-23] MEDS ORDERED: IBUPROFEN 600 MG TABLET (FP) PO ONE ×2 (10:44→10:48)
== END 2021-02-23 12:29 | disposition home or self-care (01) ==
LOC: FER 10:24
DX: S93.401A Sprain of unspecified ligament of right ankle, initial encounter (principal); W19.XXXA Unspecified fall, initial encounter; Y92.9 Unspecified place or not applicable
CPT/HCPCS: 73610-TC-RT-FY; 73630-TC-RT-FY; 99284-25

== ENCOUNTER 2022-04-20 07:23 | Emergency (ER) | payer OTHER ==
[2022-04-20] MEDS ORDERED: ACETAMINOPHEN 1000 MG/100 ML BAG IVPB ONE (07:48)
[2022-04-20] MEDS ORDERED: ONDANSETRON 4 MG/2 ML VIAL IVPUSH ONE (07:48)
[2022-04-20] MEDS ORDERED: ONDANSETRON 4 MG/2 ML VIAL ONE (07:49)
[2022-04-20] MEDS ORDERED: ACETAMINOPHEN INJECTION 100 ML IVPB ONE (07:49)
[2022-04-20 07:58] VITALS: RESP 18; BMI 24.0
[2022-04-20 08:30] LABS: HEMATOCRIT 42.5 % (32.4-45.2); HEMOGLOBIN 14.2 G/dL (10.7-15.3); MCH 30.7 pg (25.7-33.7); MCHC 33.5 g/dl (32.0-36.0); MEAN CELL VOLUME 91.7 fl (80-96); MEAN PLT VOLUME 6.8 fl (7.5-11.1); PLATELET COUNT 256.9 10^3/uL (134-434); RBC 4.64 10^6/uL (3.60-5.2); RDW 14.4 % (11.6-15.6); WHITE BLOOD COUNT 4.2 10^3/uL (4.0-10.8)
[2022-04-20] MEDS ORDERED: SODIUM CHLORIDE 1,000 ML IV STA (08:31)
[2022-04-20 08:38] LABS: ALBUMIN 4.2 g/dl (3.4-5.0); BILIRUBIN,TOTAL 0.6 mg/dl (0.2-1); CREATININE 0.7 mg/dl (0.55-1.3); TOT PROT 7.4 g/dl (6.4-8.2)
[2022-04-20 08:49] LABS: PLATELET ESTIMATE ADEQUATE
[2022-04-20 09:04] LABS: EPITHELIAL CELLS RARE /hpf
[2022-04-20 10:15] VITALS: BP 130/84; PULSE 88; TEMP 98.9
== END 2022-04-20 10:39 | disposition home or self-care (01) ==
LOC: FER 07:23
PROC: 3E0333Z Introduction of Anti-inflammatory into Peripheral Vein, Percutaneous Approach (ICD-10-PCS; principal; 2022-04-20)
PROC: 3E033GC Introduction of Other Therapeutic Substance into Peripheral Vein, Percutaneous Approach (ICD-10-PCS; 2022-04-20)
PROC: 3E0337Z Introduction of Electrolytic and Water Balance Substance into Peripheral Vein, Percutaneous Approach (ICD-10-PCS; 2022-04-20)
DX: U07.1 COVID-19 (principal)
CPT/HCPCS: 0241U-QW; 36415; 74176-TC; 80053; 81003; 81015; 85025; 87086; 99284-25

== ENCOUNTER 2024-09-23 09:20 | Emergency (ER) | payer OTHER ==
[2024-09-23 09:37] VITALS: BP 166/100; PULSE 65; RESP 16; TEMP 98.2; BMI 22.3
== END 2024-09-23 11:33 | disposition home or self-care (01) ==
LOC: FER 09:20
DX: H54.62 Unqualified visual loss, left eye, normal vision right eye (principal)
CPT/HCPCS: 93005; 99283-25

== ENCOUNTER 2024-12-21 08:37 | Day surgery (SDC) | payer OTHER ==
[2024-12-20 08:16] VITALS: BMI 25.7
[2024-12-21] MEDS: KETOROLAC TROMETHAMINE 30 MG/1 ML VIAL IM ONE
[2024-12-21] MEDS: BUPIVACAINE HCL/PF 0.25% (2.5MG/ML) 10 ML VIAL IJ ONE
[2024-12-21] MEDS: VANCOMYCIN 1,000 MG VIAL (RESTRICTED TO ID ONLY) IVPB ONE
[2024-12-21] MEDS ORDERED: PROPOFOL 80 ML ONE (10:11)
[2024-12-21] MEDS ORDERED: LIDOCAINE HCL/PF 2% SDV 5ML VIAL ONE (10:11)
[2024-12-21] MEDS ORDERED: MIDAZOLAM HCL 2 MG/2 ML SINGLE DOSE VIAL ONE ×2 (10:12→10:56)
[2024-12-21] MEDS ORDERED: VANCOMYCIN 1,000 MG VIAL (RESTRICTED TO ID ONLY) ONE (10:39)
[2024-12-21] MEDS ORDERED: BUPIVACAINE LIPOSOME/PF (EXPAREL) 266 MG/20 ML VIAL ONE (10:57)
[2024-12-21] MEDS ORDERED: BUPIVACAINE HCL/PF 0.5% (5MG/ML) 10 ML VIAL ONE (10:57)
[2024-12-21] MEDS ORDERED: KETOROLAC TROMETHAMINE 30 MG/1 ML VIAL ONE (12:32)
[2024-12-21] MEDS ORDERED: BUPIVACAINE HCL/PF 0.25% (2.5MG/ML) 10 ML VIAL ONE (12:33)
[2024-12-21] MEDS ORDERED: BUPIVACAINE HCL/PF 2.5 MG/ML - 30 ML VIAL IJ ONE (12:33)
[2024-12-21] MEDS ORDERED: PHENYLEPHRINE HCL 10 MG/1 ML SINGLE DOSE VIAL ONE (12:46)
[2024-12-21] MEDS ORDERED: TRANEXAMIC ACID 1000 MG/10 ML VIAL ONE (12:50)
[2024-12-21] MEDS ORDERED: PROMETHAZINE HCL 25 MG/1 ML VIAL IVPB PRN (13:16)
[2024-12-21] MEDS ORDERED: ACETAMINOPHEN 1000 MG/100 ML BAG IVPB ONE (13:16)
[2024-12-21] MEDS ORDERED: ONDANSETRON 4 MG/2 ML VIAL IVPUSH PRN (13:16)
[2024-12-21] MEDS: ACETAMINOPHEN 1000 MG/100 ML BAG IVPB ONE (13:40)
[2024-12-21] MEDS ORDERED: ACETAMINOPHEN INJECTION 100 ML ONE (13:40)
[2024-12-21] MEDS ORDERED: MAG HYDROX/AL HYDROX/SIMETH 30 ML UNIT-DOSE CUP PO PRN (13:43)
[2024-12-21] MEDS: KETOROLAC TROMETHAMINE 30 MG/1 ML VIAL IVPUSH PRN (13:45)
[2024-12-21] MEDS: ONDANSETRON 4 MG/2 ML VIAL IVPUSH PRN (13:45)
[2024-12-21] MEDS ORDERED: PATIENT'S OWN MEDICATION (NON-FORMULARY) (Butalbital/Acetaminophen [Butalbital-Acetaminoph PO PRN (13:47)
[2024-12-21] MEDS ORDERED: ACETAMINOPHEN/CAFFEINE/BUTALBITAL 1 TAB PO PRN (14:31)
[2024-12-21] MEDS: LACTATED RINGERS SOLUTION 1,000 ML IV SCH (14:38)
[2024-12-21] MEDS: ONDANSETRON 4 MG/2 ML VIAL IVPUSH ONE (20:06)
[2024-12-21] MEDS: CEFAZOLIN 2 GM/D5W 2 GRAM/50 ML ML IVPB SCH (20:53)
[2024-12-21] MEDS: ATORVASTATIN CA 40 MG TABLET (FP) PO SCH (21:01)
[2024-12-21] MEDS: SENNOSIDES/DOCUSATE COMBO (SENNA PLUS) TABLET (UD) PO SCH (21:01)
[2024-12-21] MEDS: oxyCODONE HCL 10 MG SUSTAINED ACTING TABLET PO SCH (21:01)
[2024-12-21 22:40] VITALS: RESP 18
[2024-12-22 08:05] LABS: MCHC 32.3 g/dl (32.2-35.5); MEAN CELL VOLUME 96.3 fl (79.4-94.8); MEAN PLT VOLUME 8.9 fl (9.4-12.3); RDW 13.1 % (12.4-16.4)
[2024-12-22 08:41] LABS: CO2 25.0 mmol/L (21-32); CREATININE 0.6 mg/dl (0.6-1.3); GLUCOSE,RANDOM 131.0 mg/dl (74-106)
[2024-12-22] MEDS: ASPIRIN COATED 81 MG TABLET.EC PO SCH (09:04)
[2024-12-22] MEDS: MULTIVITAMINS (DAILY MVI) TABLET (FP) PO SCH (09:04)
[2024-12-22] MEDS: PANTOPRAZOLE 40 MG TABLET PO SCH (09:04)
[2024-12-22] MEDS: ACETAMINOPHEN 1000 MG/100 ML BAG IVPB SCH (09:30)
[2024-12-22] MEDS: ACETAMINOPHEN 500 MG TABLET (FP) PO SCH (09:35)
[2024-12-22] MEDS: KETOROLAC TROMETHAMINE 30 MG/1 ML VIAL IVPUSH PRN (12:13)
[2024-12-22 14:13] VITALS: BP 122/70; PULSE 72; TEMP 98.4
== END 2024-12-22 15:12 | disposition home or self-care (01) ==
LOC: FASUSAT 08:37 → FM/S 14:19 → FASUSAT 12-22 15:12
PROVIDERS: ATTEND Orthopaedic Surgery Sports Medicine
PROC: 8E0Y0CZ Robotic Assisted Procedure of Lower Extremity, Open Approach (ICD-10-PCS; 2024-12-21)
PROC: 0SRC0JZ Replacement of Right Knee Joint with Synthetic Substitute, Open Approach (ICD-10-PCS; principal; 2024-12-21 12:17)
DX: M17.11 Unilateral primary osteoarthritis, right knee (principal)
CPT/HCPCS: 27447; S2900; 36415; 73560-TC-RT-FY; 80048; 85027; 88305-TC; 88311-TC; 94760; 97010-GP; 97116-GP; 97162-GP; C1776; J0666